=== PATIENT | female | born 2000 | race Caucasian/White ===

== ENCOUNTER 2021-04-20 17:24 | Emergency (ER) | payer OTHER ==
[2021-04-20 19:13] LABS: HEMOGLOBIN 11.6 gm/dl (12.3-15.3); RED BLOOD COUNT 3.95 M/UL (4.00-5.10); WHITE BLOOD COUNT 6.7 K/UL (4.5-11.0)
[2021-04-20 19:37] LABS: BUN/CREATININE RATIO 11 (0-10)
[2021-04-20] MEDS ORDERED: MELOXICAM5 MG PO (21:52)
== END 2021-04-20 22:05 | disposition home or self-care (01) ==
LOC: ER1 17:24
PROVIDERS: Student in an Organized Health Care Education/Training Program
DX: M54.6 Pain in thoracic spine (principal); G89.29 Other chronic pain; L08.9 Local infection of the skin and subcutaneous tissue, unspecified
CPT/HCPCS: 72130; 80053; 84702; 85025; 99284; Q9967